=== PATIENT | female | born 1965 | race Caucasian/White ===

== ENCOUNTER → 2016-07-26 | Outpatient (CLI) | payer OTHER | END | disposition home or self-care (01) | LOC: RAD.S 13:23 | DX: N92.6 Irregular menstruation, unspecified (principal) ==

== ENCOUNTER → 2016-08-20 | Outpatient (CLI) | payer OTHER | END | disposition home or self-care (01) | LOC: RAD.S 08:00 | DX: Z12.31 Encounter for screening mammogram for malignant neoplasm of breast (principal) ==